=== PATIENT | male | born 1995 | race Caucasian/White ===

== ENCOUNTER 2018-01-22 13:01 | Emergency (ER) | payer SELFPAY ==
[~2018-01-22] VITALS: Ht 180.3 cm; Wt 61.2 kg
== END 2018-01-22 13:18 | disposition home or self-care (01) ==
LOC: ED 13:01
DX: S61.210A Laceration without foreign body of right index finger without damage to nail, initial encounter (principal); W45.8XXA Other foreign body or object entering through skin, initial encounter

== ENCOUNTER 2020-11-16 12:31 | Emergency (ER) | payer OTHER ==
[~2020-11-16] VITALS: Ht 180.3 cm; Wt 61.2 kg
--- OUTSIDE RECORDS SUMMARY | 2020-11-16 12:34 | XMS ---
PreManage Notification: [employer] Cylinder Honer Events No recent Security Events currently on file [facility] There are no care providers on record at this time. [facility] has no Care Guidelines for this patient. [place] VISIT COUNT (12 MO.) 1 REI Sanchez TOTAL 1 NOTE: Visits indicate total known visits. ED/UCC VISIT TRACKING (12 MO.) 11/16/2020 12:31 RE[facility] [place] TYPE: Emergency COMPLAINT: - PAIN IN GENITAL INPATIENT VISIT TRACKING (12 MO.) No inpatient visits to display in this time frame [email or web address]
[2020-11-16] MEDS ORDERED: DOXYCYCLINE HY100 MG PO (14:25)
[2020-11-16] MEDS ORDERED: HYDROCODON-ACE1 EA10 PO (14:28)
[2020-11-16] MEDS ORDERED: ZOFRAN4 MG PO (14:28)
== END 2020-11-16 14:54 | disposition home or self-care (01) ==
LOC: ED 12:31
DX: N41.9 Inflammatory disease of prostate, unspecified (principal)
CPT/HCPCS: 76870; 81001; 99284-25; J0696